=== PATIENT | female | born 1945 | race Caucasian/White ===

== ENCOUNTER 2017-09-16 07:34 | Day surgery (SDC) | payer MEDICARE, OTHER ==
[~2017-09-16 07:34] MED LIST: CYCLOPENTOLATE 1% OPHTH DROPS 2 ML ONE; KETOROLAC 0.45% OPHTH DROPS ONE; PHENYLEPHRINE 2.5% OPHTH 2 ML DROPS ONE; PROPARACAINE 0.5% OPHTH DROPS 15 ML ONE
[2017-09-16] MEDS ORDERED: MIDAZOLAM 2 MG/2 ML VIAL IVP ONE (07:50)
[2017-09-16] MEDS ORDERED: PHENYLEPHRINE 2.5% OPHTH 2 ML DROPS RIGHTEYE ONE (08:00)
[2017-09-16] MEDS ORDERED: CYCLOPENTOLATE 1% OPHTH DROPS 2 ML RIGHTEYE ONE (08:00)
[2017-09-16] MEDS ORDERED: PROPARACAINE 0.5% OPHTH DROPS 15 ML RIGHTEYE ONE ×2 (08:00→09:42)
[2017-09-16] MEDS ORDERED: KETOROLAC 0.45% OPHTH DROPS RIGHTEYE ONE (08:00)
[2017-09-16] MEDS ORDERED: LACTATED RINGERS 500 ML IV ONE (08:05)
[2017-09-16] MEDS ORDERED: EPINEPHrine 1 MG/ML AMP IVP ONE (09:40)
[2017-09-16] MEDS ORDERED: BRIMONIDINE 0.2% OPHTH DROPS 5 ML OPTH ONE (09:40)
[2017-09-16] MEDS ORDERED: BSS/LIDOCAINE/EPINEPHRINE 1 ML SYRINGE IO ONE (09:41)
[2017-09-16] MEDS ORDERED: TIMOLOL 0.5% OPHTH DROPS OPTH ONE (09:41)
[2017-09-16] MEDS ORDERED: CHONDR SULF/HYALURONATE SYRINGE IO ONE (09:41)
[2017-09-16] MEDS ORDERED: TRIAMCIN/MOXIFLOX/VANCO 1 ML VIAL IO ONE ×2 (09:42)
[2017-09-16 10:37] VITALS: BP 121/71
--- NOTE | 2017-09-16 10:50 | OPERATIVE REPORT ---
DATE OF SERVICE: 09/16/2017 Physician: Brennen Fallon MD DATE OF SURGERY: 09/16/2017 PREOPERATIVE DIAGNOSIS: Visually significant cataract, right eye. This is her first cataract surgery. POSTOPERATIVE DIAGNOSIS: Visually significant cataract, right eye. This is her first cataract surgery. NAME OF PROCEDURE: Phacoemulsification with posterior chamber intraocular lens implant, right eye. SURGEON: Brennen Fallon MD ANESTHESIA: Monitored anesthesia care. COMPLICATIONS: None. OPERATIVE INDICATIONS: This is a 71-year-old woman with progressive vision loss in the right eye due to 2+ nuclear sclerotic and 1+ posterior subcapsular cataract. Best corrected visual acuity was 20/25 with glare to 20/40 in the right eye. INDICATIONS FOR SURGERY: Overall decrease in vision, difficulty seeing street signs, difficulty driving in low light or at night, difficulty driving at night because of headlights from other vehicles; difficulty with glare, bright lights in any situation, and difficulty tracking a golf ball. She was consented at length concerning the risks and benefits of cataract surgery, after which she expressed a desire to proceed with surgery. OPERATIVE PROCEDURE: The patient was taken into OR #3 and placed under monitored anesthesia care. A surgical timeout was conducted confirming correct patient, correct procedure, and correct surgical site. She was placed on the LenSx laser and her eye was docked with the laser interface. The laser performed the capsulotomy, lens softening, phaco wounds and arcuate keratotomy incisions. She was then moved to the operating microscope, given topical anesthesia, and then prepped and draped in the usual sterile fashion. The eye was entered at the 12 and 9 o'clock positions. Intracameral Shugarcaine was injected into the anterior chamber, followed by Viscoat. Capsulorrhexis flap created by the LenSx laser was removed from the anterior chamber. Nucleus was hydrodissected and phacoemulsified. Cortex was evacuated using automated infusion and aspiration. Provisc was injected into the capsular bag, and a 21.0 diopter intraocular lens was inserted in the bag. Approximately 0.7 mL of a mixture of triamcinolone, moxifloxacin, and vancomycin was injected subconjunctivally in the superior quadrant for infection and inflammation prophylaxis. I&A, was used to evacuate the viscoelastic material. The eye was inflated to physiologic pressure using balanced salt solution and found to be watertight. The patient was taken from the operating room in good condition and given postop instructions. TD: 09/16/2017 11:48 [id number]
== END 2017-09-16 07:35 | disposition home or self-care (01) ==
LOC: SDS 07:34
PROVIDERS: ATTEND Ophthalmology
PROC: 08RJ3JZ Replacement of Right Lens with Synthetic Substitute, Percutaneous Approach (ICD-10-PCS; principal; 2017-09-16 09:00)
DX: H25.811 Combined forms of age-related cataract, right eye (principal)
CPT/HCPCS: 66984; A9270; J3490; V2632

== ENCOUNTER 2021-01-21 12:20 | Outpatient (CLI) | payer MEDICARE, OTHER | END 2021-01-21 23:59 | disposition home or self-care (01) | LOC: COV 12:20 | PROVIDERS: ATTEND Internal Medicine Gastroenterology | DX: Z01.812 Encounter for preprocedural laboratory examination (principal); Z86.010 Personal history of colon polyps; Z20.822 Contact with and (suspected) exposure to COVID-19 ==